=== PATIENT | female | born 1990 | race Caucasian/White ===

== ENCOUNTER → 2018-01-30 16:21 | Outpatient (CLI) | payer OTHER, SELFPAY ==
[2018-01-30 17:11] LABS: Absolute Lymphocyte Count 2.51 X10^3/ul (0.83-4.51); Absolute Neutrophil Count 4.9 X10^3/uL (2.0-7.7); Basophil# 0.05 X10^3/uL; Basophil% 0.6 % (0-1); Eosinophil# 0.15 X10^3/uL; Eosinophils% 1.9 % (0-5); Hematocrit 39.8 % (37-47); Hemoglobin 13.3 g/dl (12.0-15.0); Lymphocyte # 2.51 X10^3/ul (4.0); Lymphocyte % 31.5 % (19-41); Mean Corp Hgb Conc 33.4 g/gl (32-36); Mean Corpuscular Hgb 30.6 pg (27.0-32.0); Mean Corpuscular Volume 91.7 fL (81-99); Mean Platelet Vol. 10.4 fl (6.2-12.0); Monocyte# 0.41 X10^3/uL; Monocyte% 5.1 % (0-10); Neutrophil # 4.85 X10^3/uL (2.7-7.7); Neutrophil % 60.9 % (47-70); Platelet Count 304 K/mm3 (150-450); RBC Distribution Width SD 43.7 fl (35.1-43.9); Red Blood Count 4.34 M/mm3 (4.2-5.4)
[2018-01-30 17:12] LABS: POSITIVE COUNT NO; POSITIVE DIFFERENTIAL NO; POSITIVE MORPHOLOGY NO
[2018-01-30 18:22] LABS: HIV - WCH Non-Reactive (Nonreactive)
[2018-02-04 11:37] LABS: HEPATITIS B SURFACE AG Negative (Negative)
[2018-02-06 04:35] LABS: Rapid Plasmin Reagin (RPR) NONREACTIVE (NONREACTIVE)
== END ==
PROVIDERS: Visit Provider Obstetrics & Gynecology
DX: Z34.90 Encounter for supervision of normal pregnancy, unspecified, unspecified trimester (principal)
CPT/HCPCS: 36415; 85025; 86592; 86703; 86762; 86850; 86900; 87340

== ENCOUNTER → 2018-01-30 19:01 | Outpatient (CLI) | payer OTHER, SELFPAY ==
[2018-01-30 21:15] LABS: Chlamydia Trachomatis by PCR Negative (Negative); Neisserai gonorrhoeae by PCR Negative (Negative); Probe Check PASS; Sample Adequacy Control PASS; Specimen Processing Control PASS
[2018-02-06 13:38] LABS: HPV Reflexed? NOT INDICATED
== END ==
PROVIDERS: Visit Provider Obstetrics & Gynecology
DX: O99.511 Diseases of the respiratory system complicating pregnancy, first trimester (principal); J84.01 Alveolar proteinosis; Z3A.00 Weeks of gestation of pregnancy not specified; Z12.4 Encounter for screening for malignant neoplasm of cervix
CPT/HCPCS: 87086; 87088; 87186; 87491; 87591; 88175; G0145

== ENCOUNTER 2018-03-03 14:56 | Day surgery (SDC) | payer OTHER, SELFPAY ==
--- NOTE | 2018-03-03 06:45 | PCM.HPOB.BLA ---
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: No Is patient in pain?: No Allergies No Known Allergies Allergy (Verified 02/27/18 15:51) Medications Vits [Prenatabs FA ] 1 tab PO DAILY 11/02/16 [History Confirmed 02/27/18] Ferrous Sulfate 325 mg PO DAILY #30 tab 11/05/16 [Rx Confirmed 02/27/18] Ibuprofen [Motrin] 600 mg PO Q6H PRN #60 tab 11/05/16 [Rx Confirmed 02/27/18] Last Menstral Period: 11/30/17 Zika: Zika virus screening: Negative : No PFSH PFSH Social History current occupational status: employed current occupation: [employer] Smoking Status: Never smoker alcohol intake: never substance use type: does not use caffeine: No what type of physical activity do you participate in: none seatbelt use: always do you feel safe at home: Yes 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 Date Name GA/Weeks Outcome Route Bth Weight Infant Gen Labor Lgth Anesthesia Del [facility] Provider FOB 11/03/16 Anna 39 live - full term 8 lbs. 1 oz. Delivery Date: 11/03/16 On 01/30/18 @ 15:37 Jil Sampson chorioamnionitis HPI est ob 11 weeks: Details: SUMMER ABREU is a 27 year old who presents for routine OB visit. she denies any vaginal bleeding or abnormal discharge. she denies any signficant cramping. OB Visit YANDY Calculator Estimated Delivery Date 09/18/18 Based on Ultrasound Date 01/30/18 Current WG 11w 2d Number 1 Initial Weight: Not Recorded Date EGA Weight BP Urine Prot Glucose FHR FuHt Pres Mov CTX Dilation Effaced St Visit Note Provider Comments 01/30/18 7w 0d 116 lb 6 oz 111/66 02/27/18 11w 0d 121 lb 4 oz 129/77 Negative Negative ACOG First Trimester First Trimester: Desire for , Alcohol, Tobacco Cessation, Illicit/Recreational Drug/Substance Use, Intimate Partner Violence, Barriers to care, Unstable Housing, Communication Barriers, Environmental/Work Hazards, Anticipated Course of Care, Toxoplasmosis Precations, Use of Any medications, Sexual activity, Exercise, Dental Care, Sauna/Hot tub use, Seat Belt use, Childbirth classes/Hospital facilities, , Travel, Indications for US and Screening for Aneuploidy Diagnostics Diagnostics Labs Blood Type A POSITIVE 01/30/18 Antibody Screen NEGATIVE 01/30/18 Hct 39.8 % (37-47) 01/30/18 Hgb 13.3 g/dl (12.0-15.0) 01/30/18 Pap Smear Negative 03/25/16 Rubella IgG Antibody 98.0 IU/mL 01/30/18 RPR NONREACTIVE (NONREACTIVE) 01/30/18 Hep Bs Antigen Negative (Negative) 01/30/18 Chlam trachomat DNA PCR Negative (Negative) 01/30/18 N.gonorrhoeae DNA (PCR) Negative (Negative) 01/30/18 Rhogam given: No 11/05/16 Details: HIV: Urine Culture: Sequential Screen: NIPT Screen: ROS Const Reports system reviewed and no additional complaints, except as docu Resp Reports system reviewed and no additional complaints, except as docu Musc Reports system reviewed and no additional complaints, except as docu Exam Const General: healthy appearing, comfortable, no acute distress [facility] Head: normal to inspection, normocephalic Neck Neck: no lymphadenopathy noted Thyroid: thyroid normal Chest Chest palpation & inspection: normal inspection of the chest Resp Effort & Inspection: normal respiratory effort GI Inspection: normal to inspection Palpation: soft, nontender Skin General: no rashes or lesions noted Neuro General: no focal motor deficits Extrem General: normal to inspection, no pedal edema Results [id number] Office Urine Glucose Negative Last Edit by Malissa Becerra on 02/27/18 15:56 Office Urine Protein Negative Last Edit by Malissa Becerra on 02/27/18 15:56 Assessment & Plan Problems 1. Missed O02.1 plan d and c Plan bedside ultrasound done and pole measuring 9weeks 1 day with no heart tones seen. confirmed Missed . discussed options of cytotec vs d and c- patient desires suction d and c. proceed with surgery. Orders Orders: POC Urinalysis 2 Dip (Clinic) 02/27/18 Coding Level of Care Code Off vis,est,level 4 Diagnoses Missed O02.1 UPDATE- I have seen the patient and performed any clinically relevant updates to the history and physical exam. Jil Sampson MD
[2018-03-03 15:15] VITALS: BP 116/73; PULSE 110; RESP 18; TEMP 37.3; O2SAT 100; BMI 22.4
--- NOTE | 2018-03-03 16:30 | POC_PTH ---
PATIENT: SUMMER ABREU LOC: [facility] [place] U#:[id number] AGE/SX: 27/F ROOM: RE03/03/[address]: Dr. Jil Sampson MD : 1990 BED: DIS: 03/03/2018 SPEC #: [id number] RECD: 03/04/18 08:15 STATUS: JOJO JHON #: [id number] DANNY: 03/03/18 16:[address]: Jil Sampson DEPT: SURGICAL PATHOLOGY RECD BY: Aamir Wagner ENTERED: 03/04/18 10:53 SP TYPE: PROD CONC OTHR DR: No Primary Care Phys Tissues: Product of conception, NOS Procedures: Surgery Specimen Level IV HEADER OPERATION: Dilation and curettage, suction PRE-OP DIAGNOSIS: Missed TISSUE SUBMITTED: Products of conception MICROSCOPIC DIAGNOSIS Endometrium, curettage: Chorionic villi, decidualized stroma and trophoblastic cells consistent with products of conception. AM:sourav 03/05/18 MICROSCOPIC DESCRIPTION Slides are reviewed. GROSS DESCRIPTION Received in fixative is one container labeled with the patient's name and designated products of conception. The specimen consists of multiple irregular fragments of pink-red soft tissue that in aggregate measure 8 x 8 x 2.5 cm. tissue is not identified. Kinesiotherapist tissue is submitted in two cassettes. / SJ:sourav 03/04/18 TC:5 CPT: 27930
[2018-03-03 17:52] VITALS: BP 111/68; BP 116/73; PULSE 74; RESP 16; TEMP 36.7; O2SAT 100
[2018-03-03 17:55] VITALS: BP 112/70; BP 116/73; PULSE 82; RESP 16; O2SAT 100
--- NOTE | 2018-03-03 17:55 | PCM.OPRPT ---
Problem List (1) Missed Status: Acute Comment: plan d and c Report of Operation Date of Procedure: 03/03/18 Pre-Operative Diagnosis: missed ab Post-Operative Diagnosis: same Surgery/Procedure Performed:: suction d and c Description of Surgical Findings:: 10 week size uterus Type of Anesthesia:: Local MAC Special Medications: none Specimen's removed: poc Drains: none Estimated Blood Loss (mL): 50 Fluids Replaced: crystalloid Description of Procedure: Patient was taken to the operating room and placed under MAC local anesthesia. She was prepped and draped in the normal sterile fashion the dorsal lithotomy position. Bladder was drained of clear urine and anterior lip of the cervix was grasped and the uterus sounded to 12 cm. Cervix was progressively dilated to allow passage of a 10 mm suction curette. Progressive passes were made removing the retained products of conception without complication. Sharp curettage confirmed complete removal of the retained products. All instruments were removed from the vagina and excellent hemostasis was noted and the patient was taken to recovery in stable condition. Grafts/Implants Used: none - Complications mnone
--- NOTE | 2018-03-03 17:57 | PCM.DC.D&C ---
Discharge Diet: No Restrictions Discharge Activity: Return to Normal Activity, May Shower, May Take a Tub Bath Allergies/Adverse Reactions: Allergies No Known Allergies Allergy (Verified 03/02/18 09:58) Medications to take at Discharge NK [NK] 03/02/18 Primary Care Physician: Care Physician,No Primary [Primary Care Provider] - Test Results: Test results from this visit will be discussed in further detail at your follow-up appointment, if applicable. Please Follow Up With: Jil Sampson MD - [phone]
[2018-03-03 18:00] VITALS: BP 111/69; BP 116/73; PULSE 77; RESP 16; O2SAT 100
[2018-03-03 18:07] VITALS: BP 113/68; BP 116/73; PULSE 77; RESP 16; TEMP 36.9; O2SAT 100
[2018-03-03 18:53] VITALS: BP 116/73
== END 2018-03-03 18:54 | disposition home or self-care (01) ==
LOC: SDC 14:57 → AC 14:58
PROVIDERS: Visit Provider Obstetrics & Gynecology
PROC: (CPT 59812; principal; 2018-03-03 16:15)
DX: O03.4 Incomplete spontaneous abortion without complication (principal); Z87.891 Personal history of nicotine dependence
CPT/HCPCS: 01965; 59812; 86850; 86900; 88305; J7120

== ENCOUNTER 2018-10-15 09:32 | Emergency (ER) | payer OTHER, SELFPAY ==
[2018-10-15 09:33] VITALS: BP 123/79; PULSE 80; RESP 18; TEMP 37; O2SAT 99; BMI 20.7
--- NOTE | 2018-10-15 09:48 | ED.DCSUM_ITS ---
History of Present Illness Chief Complaint: Chest Other Informant: Patient Onset: Yesterday Context: Sudden Onset Timing: Continuous Location: Pain left upper quadrant Current Severity: Mild Maximum Severity: Moderate Worsened by: Movement and deep palpation Relieved by: Deep palpation and better with ibuprofen Associated Symptoms: Intermittent soft stool times 2 weeks Narrative: Patient is a 27-year-old AB 1 (spontaneous) female who is presently on her menstrual cycle and presents with pain left side predominant left upper quadrant. There is associated occasional nausea without vomiting. She denies dysuria, frequency, urgency or hematuria. There is no history of renal ureterolithiasis. She denies shortness of breath, cough, difficulty breathing, dyspnea on exertion. She has no history of PE or DVT and has no risk factors. She is on no hormonal therapy. There is no history of trauma. She has not noted rash or skin lesions. She denies prior symptoms. She denies fever, chills or night sweats. Denies weight gain or weight loss. - Past Medical History (1) No significant past medical history Status: Acute Past Medical History - Allergies and Home Meds Allergies/Adverse Reactions: Allergies No Known Allergies Allergy (Verified 10/15/18 09:35) Primary Care Physician: Care Physician,No Primary [Primary Care Provider] - Prior records reviewed: Yes Past Medical History: None Surgical History: noncontributory Lives: With Family Smoking Status: Former smoker Alcohol: None Drugs: None Review of Systems General: Denies: Chills, Fever, Sweats Eyes: Denies: Visual changes - bilaterally, Blurred Vision - bilaterally, Diplopia ENT: Denies: Rhinorrhea, Sore throat Cardiovascular: Denies: Chest pain, Palpitations Respiratory: Denies: Dyspnea, Cough, Dyspnea on exertion Gastrointestinal: Reports: Abdominal pain, Nausea, Diarrhea - Mushy stools intermittently for 2 weeks. Denies: Vomiting, Melena, Hematochezia Genitourinary: Denies: Dysuria, Hematuria, Frequency Musculoskeletal: Denies: Myalgias, Arthralgias, Back pain, Extremity Pain Skin: Denies: Rash, Abscess, Abrasions, Wounds Neurological: Denies: Headache, Weakness, Numbness Hematologic: Denies: Easy bruising, Easy bleeding Allergy: Denies: Uticaria Physical Exam Vital Signs/Narrative: Vital Signs Temp Pulse Resp BP Pulse Ox 10/15/18 09:33 98.6 F 80 18 123/79 H 99 Inital Vital Signs reviewed: Yes General: Well nourished, Well developed, No Acute Distress Head: Normocephalic, Atraumatic Eyes: Perrl, EOMI. Negative for: Pale conjunctiva, Scleral icterus, - ENT: Negative for: Moist mucous membranes, No rhinorrhea, TM's clear, Dry mucous membranes, Nasal congestion, Sinus tenderness, - Neck: Supple, Nontender, No lymphadenopathy, No JVD Cardiovascular: Regular rate, Regular rhythm, No murmurs, Normal S1, Normal S2 Respiratory: No distress, CTA bilaterally, Chest nontender Abdomen: Soft, No masses, Tender - Tenderness left upper quadrant., Hyperactive bowel sounds - [place] to percussion.. Negative for: Guarding, Rebound tenderness, Hepatomegaly, Splenomegaly, Mass, Pulsatile mass Rectal: Deferred Back: Nontender, Normal Inspection. Negative for: CVA tenderness Extremities: Nontender, No edema Skin: Normal color, No rash, No Trauma. Negative for: Cyanosis, Jaundice, Rash Neurological: Alert, Oriented x3, Cranial nerves II-XII grossly intact, Normal Strength, Normal Sensation, Normal Gait Psychological: Normal affect, Normal Mood Diagnostic/Tx/Re-eval Laboratory Results 10/15/18 10/15/18 09:55 09:55 WBC 8.4 RBC 4.53 Hgb 14.2 Hct 43.5 MCV 96.0 MCH 31.3 MCHC 32.6 RDW 13.9 RDW Differential 48.9 H Plt Count 290 MPV 11.3 Immature Gran % (Auto) 0.000 Neut % (Auto) 68.4 Lymph % (Auto) 24.3 [place] % (Auto) 5.8 Eos % (Auto) 1.3 Baso % (Auto) 0.2 Absolute Neuts (auto) 5.8 Absolute Lymphs (auto) 2.05 Total Counted Not Reportable Sodium 139 Potassium 3.8 Chloride 107 Carbon Dioxide 24.0 Anion Gap 8 BUN 11 Creatinine 0.72 Estim Creat Clear Calc 90.13 Est GFR (MDRD) Af Amer 126 Est GFR (MDRD) Non-Af 104 BUN/Creatinine Ratio 15.3 Glucose 83 Calcium 8.6 - Medical Decision Making Patient with abdominal pain of uncertain etiology. This may represent increased gas. There is no evidence of splenomegaly on examination. Negative Wright sign. Doubt pancreatitis since there is no history of drinking. Will obtain CBC to assess white count and H&H. Because she reports diarrhea for 2 weeks electrode panel was obtained to assess renal function and specifically potassium. She was treated with 20 of Bentyl since she is tympanitic with increased bowel sounds and mild distention. Patient was informed at 1115 that her test were negative. She was lying without any discomfort. She is now smiling. Will discharge to home. She was informed of the cause of her pain is unknown. ED Disposition - Plan for ED Patient: Disposition: Home or Assisted Living Diagnosis: Left sided abdominal pain of unknown cause Instructions: ED Abdominal Pain Unkn Cause Referrals: Care Physician,No Primary [Primary Care Provider] - Cortney Novoa MD [STAFF PHYSICIAN] - 3-5 Days if not improving Additional Instructions: Since you do not have a primary care physician you were referred to Dr. Novoa.
[2018-10-15 10:17] LABS: Absolute Lymphocyte Count 2.05 X10^3/ul (0.83-4.51); Absolute Neutrophil Count 5.8 X10^3/uL (2.0-7.7); Basophil# 0.02 X10^3/uL; Basophil% 0.2 % (0-1); Eosinophil# 0.11 X10^3/uL; Eosinophils% 1.3 % (0-5); Hematocrit 43.5 % (37-47); Hemoglobin 14.2 g/dl (12.0-15.0); Lymphocyte # 2.05 X10^3/ul (4.0); Lymphocyte % 24.3 % (19-41); Mean Corp Hgb Conc 32.6 g/gl (32-36); Mean Corpuscular Hgb 31.3 pg (27.0-32.0); Mean Platelet Vol. 11.3 fl (6.2-12.0); Monocyte# 0.49 X10^3/uL; Monocyte% 5.8 % (0-10); Neutrophil # 5.76 X10^3/uL (2.7-7.7); Neutrophil % 68.4 % (47-70); Platelet Count 290 K/mm3 (150-450); RBC Distribution Width CV 13.9 % (11.6-14.6); RBC Distribution Width SD 48.9 fl (35.1-43.9); Red Blood Count 4.53 M/mm3 (4.2-5.4); White Blood Count 8.4 K/mm3 (4.4-11.0)
[2018-10-15 10:19] LABS: POSITIVE COUNT NO; POSITIVE DIFFERENTIAL NO; POSITIVE MORPHOLOGY NO
[2018-10-15 10:22] LABS: Anion Gap 8 (5-15); BUN 11 mg/dL (7-18); BUN/Creat Ratio 15.3 RATIO (10-20); Calcium,Total 8.6 mg/dL (8.5-10.1); Chloride 107 mmol/L (98-107); Creatinine, Serum 0.72 mg/dL (0.55-1.02); EST Glomerular Filtration Rate 104 mL/min (>60); Est Glom Filt Rate - Afr Amer 126 mL/min (>60); Estimated Creatinine Clearance 90.13 ml/min; Glucose 83 mg/dL (74-106); Potassium 3.8 mmol/L (3.5-5.1); Sodium Level 139 mmol/L (136-145)
[2018-10-15] MEDS: Dicyclomine 10 MG Capsule 20 MG PO (10:47)
[2018-10-15 12:00] VITALS: RESP 14
== END 2018-10-15 12:01 | disposition home or self-care (01) ==
LOC: ED 11:30
PROVIDERS: Emergency Provider Emergency Medicine
DX: R10.12 Left upper quadrant pain (principal); Z87.891 Personal history of nicotine dependence
CPT/HCPCS: 80048; 85025; 99284; A4216

== ENCOUNTER → 2019-07-27 13:54 | Outpatient (CLI) | payer OTHER, SELFPAY ==
--- NOTE | 2019-07-27 13:54 | US_ITS ---
STUDY: FIRST TRIMESTER OBSTETRICAL ULTRASOUND REASON FOR EXAM: Female, 28 years old DATING ULTRASOUND -- HX OF SAB LMP: July 02, 2019. TECHNIQUE: Transvaginal TECHNICAL QUALITY: Adequate. PRIOR ULTRASOUND: None. FINDINGS: There is visualization of a single gestational sac in a normal intrauterine position. The mean sac diameter (MSD) measures 7.4 mm, indicating an estimated gestational age (EGA) of 5 weeks, 1 days. The gestational sac shape is within normal limits. There is a visualized yolk sac. The yolk sac measures 2 mm.. The placenta is non-visualized. There is no demonstrated embryo ( pole). The estimated gestation age (EGA) by LMP is 5 weeks, 4 days. The estimated date of delivery (YANDY) by LMP is March 24, 2020. The estimated gestation age (EGA) by US is 5 weeks, 1 days. The estimated date of delivery (YANDY) by US is March 27, 2020. The uterus measures 8.1 cm x 5.7 cm x 4.8 cm.. There is no demonstrated uterine fibroid. The cervix is closed. The right ovary measures 3.4 cm x 3.27 x 2.1 cm.. There is a 2.1 cm x 2.1 cm x 1.8 cm hypoechoic nodule in the right ovary most likely representing a regressing cyst. There is no visualized right adnexal mass or complex lesion. The left ovary measures 4.6 cm x 4.6 x 3.8 cm. There is a 4 cm x 4 cm x 3.3 cm left ovarian cyst. There is no visualized left adnexal mass or complex lesion. There is minimal fluid in the cul de sac. US/Init OB < 14Wks US IMPRESSION: Intrauterine gestational sac with a mean gestational age of 5 weeks and 1 day. No embryonic pole is seen at this time. Sonographic follow-up is recommended. Dominant left ovarian cyst. Electronically Signed: Mando Spencer, at 14:23 EST , Service support ,
== END ==
PROVIDERS: Referring Provider Obstetrics & Gynecology; Visit Provider Obstetrics & Gynecology
DX: Z87.59 Personal history of other complications of pregnancy, childbirth and the puerperium (principal)
CPT/HCPCS: 76801

== ENCOUNTER → 2019-07-29 11:33 | Outpatient (CLI) | payer OTHER, SELFPAY ==
[2019-07-29 13:12] LABS: hCG Titer Quant., Serum 8485 mIU/mL (1-3)
== END ==
PROVIDERS: Referring Provider Nurse Practitioner Women's Health; Visit Provider Nurse Practitioner Women's Health
DX: O20.0 Threatened abortion (principal); Z3A.00 Weeks of gestation of pregnancy not specified
CPT/HCPCS: 36415; 84702

== ENCOUNTER → 2019-08-06 12:32 | Outpatient (CLI) | payer OTHER, SELFPAY ==
--- NOTE | 2019-08-06 12:33 | US_ITS ---
STUDY: FIRST TRIMESTER OBSTETRICAL ULTRASOUND REASON FOR EXAM: Female, 28 years old. Viability. Dates. LMP: June 24, 2019. TECHNIQUE: Transvaginal TECHNICAL QUALITY: Adequate. PRIOR ULTRASOUND: July 27, 2019. FINDINGS: There is visualization of a single gestational sac in a normal intrauterine position. The mean sac diameter (MSD) measures 1.77 cm, indicating an estimated gestational age (EGA) of 6 weeks, 5 days. The gestational sac shape is within normal limits. There is a visualized yolk sac. The yolk sac measures 0.33 cm. The placenta is non-visualized. There is visualization of a live embryo. The crown-rump length (CRL) measures 0.67 cm, indicating an estimated gestational age (EGA) of 6 weeks, 4 days. There is demonstrated cardiac activity with a heart rate of 114 bpm. The estimated gestation age (EGA) by LMP is 6 weeks, 1 days. The estimated date of delivery (YANDY) by LMP is March 30, 2020. The estimated gestation age (EGA) by prior US is 6 weeks, 4 days. The estimated date of delivery (YANDY) by prior US is March 27, 2020. The estimated gestation age (EGA) by US is 6 weeks, 5 days. The estimated date of delivery (YANDY) by US is March 26, 2020. The uterus measures 7.9 x 4.6 x 4.5 cm. There is no demonstrated uterine fibroid. The cervix is closed. The right ovary measures 4.3 x 2.3 x 1.8 cm. There is a 2.0 x 2.2 x 1.8 cm corpus luteum cyst. There is no visualized right adnexal mass or complex lesion. Normal vascularity on Doppler imaging. The left ovary measures 5.7 x 5.3 x 3.5. There is a large cyst measuring 4.3 x 4.3 x 2.5 cm. This contains internal debris. There is no visualized left adnexal mass or complex lesion. Normal vascularity on Doppler imaging. There is minimal free fluid adjacent to the right ovary. US/Init OB < 14Wks US IMPRESSION: 1. Live single intrauterine at 6 weeks, 5 days. YANDY is March 26, 2020. There is adequate interval growth since prior study. 2. heart rate of 114 bpm. 3. Right ovarian corpus luteum cyst. There is minimal free fluid adjacent to the right ovary. 4. Complicated left ovarian cyst this appears unchanged from the prior exam. Electronically Signed: Shahzad Wilcox DO at 19:10 EST Tel [phone], Service support ,
== END ==
PROVIDERS: Referring Provider Obstetrics & Gynecology; Visit Provider Obstetrics & Gynecology
DX: O20.0 Threatened abortion (principal); O34.81 Maternal care for other abnormalities of pelvic organs, first trimester; N83.11 Corpus luteum cyst of right ovary; N83.202 Unspecified ovarian cyst, left side; Z3A.01 Less than 8 weeks gestation of pregnancy
CPT/HCPCS: 76801; 76816

== ENCOUNTER → 2019-09-01 | Outpatient (CLI) | payer OTHER, SELFPAY ==
[2019-09-01 11:29] VITALS: BMI 20.7
[2019-09-01 18:28] LABS: Amphetamine Urine VISTA NEGATIVE (<1000 ng/mL); Barbiturate Urine VISTA NEGATIVE (< 200 ng/mL); Benzodiazepine Urine VISTA NEGATIVE (< 200 ng/mL); Cocaine Urine VISTA NEGATIVE (< 300 ng/mL); Ecstacy Urine VISTA NEGATIVE (< 500 ng/mL); Methadone Urine VISTA NEGATIVE (< 300 ng/mL); PCP Urine VISTA NEGATIVE (< 25 ng/mL); THC Urine VISTA NEGATIVE (< 50 ng/mL); Vista UDS pH Range 5
[2019-09-01 18:43] LABS: Chlamydia Trachomatis by PCR Negative (Negative); Neisserai gonorrhoeae by PCR Negative (Negative); Probe Check PASS; Sample Adequacy Control PASS; Specimen Processing Control PASS
== END | disposition home or self-care (01) ==
LOC: LABSPEC 16:32
PROVIDERS: Referring Provider Obstetrics & Gynecology; Visit Provider Obstetrics & Gynecology
DX: Z34.90 Encounter for supervision of normal pregnancy, unspecified, unspecified trimester (principal)
CPT/HCPCS: 80307; 87086; 87088; 87491; 87591

== ENCOUNTER → 2019-09-24 11:42 | Outpatient (CLI) | payer OTHER, SELFPAY ==
[2019-09-24 11:10] VITALS: BMI 20.7
[2019-09-24 12:45] LABS: Absolute Lymphocyte Count 1.71 X10^3/uL (0.83-4.51); Absolute Neutrophil Count 4.3 X10^3/uL (2.0-7.7); Basophil# 0.02 X10^3/uL; Basophil% 0.3 % (0-1); Eosinophil# 0.09 X10^3/uL; Eosinophils% 1.4 % (0-5); Hematocrit 39.2 % (37-47); Hemoglobin 12.9 g/dL (12.0-15.0); Lymphocyte # 1.71 X10^3/ul (4.0); Lymphocyte % 26.9 % (19-41); Mean Corp Hgb Conc 32.9 g/dL (32-36); Mean Corpuscular Hgb 31.1 pg (27.0-32.0); Mean Corpuscular Volume 94.5 fL (81-99); Mean Platelet Vol. 10.8 fl (6.2-12.0); Monocyte# 0.25 X10^3/uL; Monocyte% 3.9 % (0-10); NRBC Flagged by Analyzer 0 % (0-5); Neutrophil # 4.27 X10^3/uL (2.7-7.7); Neutrophil % 67.2 % (47-70); Platelet Count 227 K/mm3 (150-450); RBC Distribution Width CV 13.2 % (11.6-14.6); RBC Distribution Width SD 46.1 fl (35.1-43.9); Red Blood Count 4.15 M/mm3 (4.2-5.4); White Blood Count 6.4 K/mm3 (4.4-11.0)
[2019-09-24 14:00] LABS: HIV - WCH Non-Reactive (Nonreactive); Hepatitis B Surface Antigen Non-Reactive (Nonreactive); Hepatitis C Antibody Non-Reactive (Nonreactive); Rubella IgG 93.3 IU/mL
[2019-09-30 02:24] LABS: Rapid Plasmin Reagin (RPR) NONREACTIVE (NONREACTIVE)
== END ==
PROVIDERS: Referring Provider Obstetrics & Gynecology; Visit Provider Obstetrics & Gynecology
DX: Z34.90 Encounter for supervision of normal pregnancy, unspecified, unspecified trimester (principal)
CPT/HCPCS: 36415; 85025; 86592; 86703; 86762; 86803; 86850; 86900; 86901; 87340

== ENCOUNTER → 2019-12-24 09:51 | Outpatient (CLI) | payer OTHER, SELFPAY ==
[2019-11-25 09:17] VITALS: BMI 20.7
[2019-12-24 10:44] LABS: Absolute Lymphocyte Count 1.72 X10^3/uL (0.83-4.51); Absolute Neutrophil Count 5.6 X10^3/uL (2.0-7.7); Basophil# 0.02 X10^3/uL; Basophil% 0.3 % (0-1); Eosinophil# 0.09 X10^3/uL; Eosinophils% 1.1 % (0-5); Hemoglobin 11.3 g/dL (12.0-15.0); Lymphocyte # 1.72 X10^3/ul (4.0); Lymphocyte % 21.9 % (19-41); Mean Corp Hgb Conc 32.3 g/dL (32-36); Mean Corpuscular Volume 99.2 fL (81-99); Mean Platelet Vol. 10.6 fl (6.2-12.0); Monocyte# 0.41 X10^3/uL; Monocyte% 5.2 % (0-10); NRBC Flagged by Analyzer 0 % (0-5); Neutrophil # 5.56 X10^3/uL (2.7-7.7); Neutrophil % 70.9 % (47-70); Platelet Count 240 K/mm3 (150-450); RBC Distribution Width CV 12.7 % (11.6-14.6); RBC Distribution Width SD 45.8 fl (35.1-43.9); Red Blood Count 3.53 M/mm3 (4.2-5.4); White Blood Count 7.9 K/mm3 (4.4-11.0)
[2019-12-24 11:03] LABS: Glucose Challenge Gest 1H 50g 110 mg/dL (70-140)
== END ==
PROVIDERS: Referring Provider Nurse Practitioner Women's Health; Visit Provider Nurse Practitioner Women's Health
DX: Z34.90 Encounter for supervision of normal pregnancy, unspecified, unspecified trimester (principal)
CPT/HCPCS: 36415; 82950; 85025

== ENCOUNTER → 2020-03-06 | Outpatient (CLI) | payer OTHER, SELFPAY ==
[2020-03-06 10:46] VITALS: BMI 20.7
== END | disposition home or self-care (01) ==
LOC: LABSPEC 16:40
PROVIDERS: Referring Provider Obstetrics & Gynecology; Visit Provider Obstetrics & Gynecology
DX: Z34.90 Encounter for supervision of normal pregnancy, unspecified, unspecified trimester (principal)
CPT/HCPCS: 87081

== ENCOUNTER 2020-03-14 04:00 | Inpatient (IN) | payer OTHER, SELFPAY ==
[2020-03-13 10:47] VITALS: BMI 28.7
[2020-03-14] VITALS (79 sets, daily range): BP systolic 70–148; BP diastolic 34–75; PULSE 60–139; RESP 18; TEMP 36.6–39.3; O2SAT 89–100; BMI 29.6
--- NOTE | 2020-03-14 | PLAC_PTH ---
PATIENT: SUMMER ABREU LOC: [facility] U#:[id number] AGE/SX: 29/F ROOM: WP005 RE03/14/[address]: Dr. Lisa Odell MD : 1990 BED: 1 DIS: 03/16/2020 SPEC #: [id number] RECD: 03/14/20 23:30 STATUS: JOJO JHON #: [id number] DANNY: 03/14/20 00:[address]: Lisa Odell DEPT: SURGICAL PATHOLOGY RECD BY: Jose G Qureshi ENTERED: 03/15/20 10:31 SP TYPE: PLACENTA OTHR DR: No Primary Care Phys Tissues: Placenta, NOS Procedures: Surgery Specimen Level V HEADER OPERATION: Vaginal delivery PRE-OP DIAGNOSIS: Intrapartum intraamniotic infection TISSUE SUBMITTED: Placenta MICROSCOPIC DIAGNOSIS Nix placenta (616 gm): Umbilical cord - trivascular with acute funisitis. Placental membranes - acute chorioamnionitis and acute deciduitis. Placental disc - increased intraparenchymal microcalcifications. AM:sourav 03/17/20 MICROSCOPIC DESCRIPTION Slides are reviewed. GROSS DESCRIPTION SPECIMEN: PLACENTA / CLINICAL INFORMATION: A. Weight: 3.905 kg B. Gestational Age: 37 weeks C. Sex: Male PLACENTAL WEIGHT (POST FIXATION): 616 gm PLACENTAL DIMENSIONS: 19 x 18 x 3.5 cm PLACENTAL SHAPE: Usual ovoid PLACENTAL WEIGHT FOR GESTATIONAL AGE: Over 99th percentile MEMBRANES - Present A. Insertion: Marginal B. Site of rupture from edge: 6 cm from edge of placental disc C. Color of membrane: Mendez-chery D. Abnormalities: None UMBILICAL CORD - Present A. Color: Mendez-chery B. Insertion: Marginal C. Length: 29 cm D. Diameter: 1.2 cm E. Number of vessels: Three F. Abnormalities: None PLACENTAL DISC - Present A. Color of surface: Mendez-chery B. surface abnormalities: None C. Maternal cotyledons: Intact with minimal tears D. Attached retro placental clot: No clot E. Cut surface: Dark red and spongy F. Lesions: None G. Separate clot: Absent SECTIONS SUBMITTED: 1. Membrane roll 2. Cord, maternal end 3. Cord, end 4. Placental disc, and maternal surfaces 5. Placental disc, and maternal surfaces 6. Placental disc, and maternal surfaces SJ:sourav 03/16/20 TC:2 CPT: 96817
[2020-03-14] MEDS: Lactated Ringers 500 ML 999 ML IV ×2 (04:10→06:04)
[2020-03-14] MEDS: Lactated Ringers 1,000 ML 200 ML IV ×3 (04:10→13:57)
[2020-03-14 04:23] LABS: Absolute Lymphocyte Count 1.92 X10^3/uL (0.83-4.51); Absolute Neutrophil Count 9.6 X10^3/uL (2.0-7.7); Basophil# 0.02 X10^3/uL; Basophil% 0.2 % (0-1); Eosinophil# 0.03 X10^3/uL; Eosinophils% 0.2 % (0-5); Hematocrit 31.5 % (37-47); Hemoglobin 10.2 g/dL (12.0-15.0); Lymphocyte # 1.92 X10^3/ul (4.0); Lymphocyte % 15.5 % (19-41); Mean Corp Hgb Conc 32.4 g/dL (32-36); Mean Corpuscular Hgb 28.2 pg (27.0-32.0); Mean Platelet Vol. 11.2 fl (6.2-12.0); Monocyte# 0.68 X10^3/uL; Monocyte% 5.5 % (0-10); NRBC Flagged by Analyzer 0 % (0-5); Neutrophil # 9.63 X10^3/uL (2.7-7.7); Platelet Count 248 K/mm3 (150-450); RBC Distribution Width CV 12.6 % (11.6-14.6); Red Blood Count 3.62 M/mm3 (4.2-5.4); White Blood Count 12.4 K/mm3 (4.4-11.0)
[2020-03-14] MEDS: fentaNYL-bupivacaine (epidural) 100 ML BAG EPIDURAL ×2 (05:16→12:03)
--- NOTE | 2020-03-14 06:26 | HP.PCM_ITS ---
- Problem List (1) Active labor at term Status: Acute (2) Status: Acute Qualifiers: Comment: declined NIPT, ntd, and carrier screening. Anatomy US normal. (3) Supervision of normal Status: Acute Qualifiers: Comment: PRR YANDY 03/30/20 boy Deonte Castillo Conrad History and Physical Date of Admission: 03/14/20 Intake Vital Signs 03/13/20 Height 5 ft 1 in 03/13/20 Weight: 152 lb 03/13/20 BMI 28.7 03/13/20 BP 118/66 03/13/20 BMI 20.7 Intake Visit Reasons: 37WK OB Chief Complaint: est ob It Service Continuity Supervisor Required: No Is patient in pain?: No Allergies No Known Allergies Allergy (Verified 03/13/20 10:47) Medications vitamin#30 30 mg iron-10 mg iron-folic acid 1 mg-omg3 capsule cap PO 11/25/19 [History Confirmed 03/13/20] Last Menstral Period: 06/24/19 Zika: Zika virus screening: Negative : No PFSH PFSH Medical History Missed (Resolved) Surgical History History of hysteroscopy (Acute) Social History (Updated 03/13/20 @ 11:[address] 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 Date Name GA/Weeks Outcome Route Bth Weight Infant Gen Labor Lgth Anesthesia Del Locatn Provider FOB 11/03/16 Anna 39 live - full term 8 lbs. 1 oz. F emale 32hours epidural [facility] Dr. Damon Delivery Date: 11/03/16 On 01/30/18 @ 15:37 Jil Sampson chorioamnionitis HPI 37WK OB : Details: SUMMER ABREU is a 29 year old who presents for routine OB visit. OB Visit YANDY Calculator Estimated Delivery Date Method Current WG Current Estimate 03/30/20 LMP (Certain) 37w 4d Expected Delivery Route/Plan Labor Preferences- CB/BF classes: na labor support person: Conrad labor intervention preferences: prefers not to have AROM, but open if needed. had chorio last delivery pain management options preferred: epidural cut cord/dad catch: cut : yes PP control planned: NFP condoms discussed possible routes of delivery and associated risks: discussed possible delivery modalities and possible indications for each including R/B/A of , VAVD, and CS. questions answered. special requests: none Specific Issue/Plans flu vaccine: declines tdap vaccine: given rhogam: NA LARC form signed: declined movement and labor precautions reviewed. Problem list reviewed and updated with the most current plan of care details and appropriate orders placed. Relevant counseling for the gestational age provided. Continue routine care and follow up unless otherwise noted in visit notes/problem list details Initial Weight: 126 lb Date EGA Weight BP Urine Prot Glucose FHR FuHt Pres Dilation Effaced St Visit Note 09/24/19 13w 1d 127 lb 2 oz (+1 lb 2 oz) 110/64 Negative Negative 150 SM- no vb cramping 11/25/19 22w 0d 134 lb (+8 lb) 118/60 Negative Negative 139 MH-NO VB, LOF. Good FM. Nl US. 28 wk labs next visit 12/24/19 26w 1d 138 lb (+12 lb) 96/60 Negative Negative 160 26 SM- no vb lof good fm no regular ctx cbc gct tdap 01/21/20 30w 1d 141 lb 2 oz (+15 lb 2 oz) 110/64 Negative Negative 155 30 Sm- no vb lof good fm no regular ctx larc signed 02/04/20 32w 1d 145 lb (+19 lb) 110/60 Negative Negative 145 32 SM- no vb lof good fm no regular ctx discussed delivery preferences 02/18/20 34w 1d 146 lb 8 oz (+20 lb 8 oz) 100/60 Negative Negative 150 34 SM- no vb lof good fm no regular ctx 02/28/20 35w 4d 150 lb 6 oz (+24 lb 6 oz) 100/64 150 36 Sm- no vb lof good fm no regular ctx 03/06/20 36w 4d 152 lb 6 oz (+26 lb 6 oz) 122/70 Negative Negative 140 37 SM- no vb lof good f mn oregular ctx gbs collected 03/13/20 37w 4d 152 lb (+26 lb) 118/66 Negative Negative 150 38 SM no vb lof good fm no regular ctx, membranes swept. plan covid testing end of week if no labor prior. ACOG First Trimester First Trimester: Desire for , Alcohol, Tobacco Cessation, Illicit/Recreational Drug/Substance Use, Intimate Partner Violence, Barriers to care, Unstable Housing, Communication Barriers, Environmental/Work Hazards, Anticipated Course of Care, Toxoplasmosis Precations, Use of Any medications, Sexual activity, Exercise, Dental Care, Sauna/Hot tub use, Seat Belt use, Childbirth classes/Hospital facilities, , Travel, Indications for US and Screening for Aneuploidy Second Trimester Second Trimester: Signs and Symptoms of Labor, Selecting a care provider, Reproductive Life Planning, Care Planning, Tobacco Cessation, Depression/Anxiety and Intimate Partner Violence Third Trimester Third Trimester: Pain Management Plans, Labor support person(s), Immediate Larc, Movement Monitoring and Feeding Yes ; discussed Trial of Labor after Counseling or discussed Circumcision preference Diagnostics Diagnostics Diagnostics Blood Type A POSITIVE 09/24/19 Antibody Screen NEGATIVE 09/24/19 Glucose 1 Hr 50 gm 110 mg/dL (70-140) 12/24/19 HIV 1&2 Antibody Non-Reactive (Nonreactive) 09/24/19 Rubella IgG Antibody 93.3 IU/mL 09/24/19 Hgb 11.3 g/dL (12.0-15.0) L 12/24/19 Hct 35.0 % (37-47) L 12/24/19 RPR NONREACTIVE (NONREACTIVE) 09/24/19 Details: HIV: Urine Culture: Sequential Screen: NIPT Screen: ROS Const Reports system reviewed and no additional complaints, except as docu Card Reports system reviewed and no additional complaints, except as docu Resp Reports system reviewed and no additional complaints, except as docu GI Reports system reviewed and no additional complaints, except as docu, Reports nausea Reports system reviewed and no additional complaints, except as docu Musc Reports system reviewed and no additional complaints, except as docu Exam Const General: cooperative, healthy appearing, comfortable, anxious HENWI Head: normal to inspection Nose: external nose normal Face and sinus: normal facial exam Neck Neck: normal visual inspection, full ROM, no lymphadenopathy Thyroid: thyroid normal Chest Chest palpation & inspection: normal inspection of the chest Resp Effort & Inspection: normal respiratory effort GI Inspection: normal to inspection Palpation: soft, other (gravid uterus) Other: vertex and appropriate size for gestational age Other: Cervical Exam: Extrem General: pedal edema Results POC Urinalysis 2 Dip (Clinic) Office Urine Glucose Negative Last Edit by Angelica Galvin on 03/13/20 10:5 1 Office Urine Protein Negative Last Edit by Angelica Galvin on 03/13/20 10:5 1 Assessment & Plan Problems 1. Supervision of normal Z34.90 PRR YANDY 03/30/20 boy Deonte Castillo Conrad 2. Z34.90 declined NIPT, ntd, and carrier screening. Anatomy US normal. Orders Orders: POC Urinalysis 2 Dip (Clinic) Today Coding Level of Care Code OB Routine Diagnoses Supervision of normal Z34.90 Z34.90 Patient presents IAL, plan expectant management for , pitocin/AROM PRN if needed. Pain management: plans epidural. GBS negative. Management of any complications: none I have reviewed the [facility] and made any clinically relevant updates. UPDATE- I have seen the patient and performed any clinically relevant updates to the history and physical exam. Lisa Odell M.D.
[2020-03-14] MEDS: Oxytocin 30 units/NS 500 ml 30 UNITS/500 ML IV.SOLN IV (08:28)
[2020-03-14] MEDS: Acetaminophen 500 MG Tablet 1000 MG PO (14:21)
--- NOTE | 2020-03-14 16:52 | DCINST_ITS ---
Discharge Diet: No Restrictions Discharge Activity: Return to Normal Activity, May not drive while taking narcotic pain medications., May Shower May resume sexual activity in: 4-6 weeks Call your doctor if your incision/area has: Continuous Slow Oozing, Sudden Increased Bleeding, Increased Pain/ Swelling, Increased Redness, Foul Smelling Discharge Additional Instructions: If you experience any of the following, contact your healthcare provider. * Bleeding that soaks a pad every hour for 2 hours * Fever 100.4 or higher * Unrelieved incision or abdominal pain * Swelling, redness, discharge or bleeding from your incision or episiotomy site * Your incision begins to separate * Problems urinating (including inability to urinate or burning while urinating). * Visual changes * Severe headache * Flu-like symptoms * Pain or redness in one of both of your breasts * Pain, warmth, tenderness or swelling in your legs, especially the calf area * Frequent nausea and vomiting * Symptoms of depression or anxiety If you experience any of the following, call 911 or go to the nearest Emergency Room. * Chest pain * Problems breathing * Seizure activity * Partial or complete paralysis of a body part, slurred speech, weakness or drooping of the face, or a sudden inability to walk or hold your balance Allergies/Adverse Reactions: Allergies No Known Allergies Allergy (Verified 03/14/20 04:11) Medications to take at Discharge vitamin#30 30 mg iron-10 mg iron-folic acid 1 mg-omg3 capsule cap PO 11/25/19 Please Follow Up With: Jil Sampson MD - [phone] When: Call to make an appointment with your doctor in 6 weeks. If you had elevated Blood pressure or 4th degree laceration you will need to be seen in 2 weeks. Primary Care Physician: Care Physician,No Primary [Primary Care Provider] - Test Results: Test results from this visit will be discussed in further detail at your follow- up appointment, if applicable.
--- NOTE | 2020-03-14 16:52 | PCM.DCVAG ---
Discharge Diet: No Restrictions Discharge Activity: Return to Normal Activity, May not drive while taking narcotic pain medications., May Shower May resume sexual activity in: 4-6 weeks Call your doctor if your incision/area has: Continuous Slow Oozing, Sudden Increased Bleeding, Increased Pain/ Swelling, Increased Redness, Foul Smelling Discharge Additional Instructions: If you experience any of the following, contact your healthcare provider. Bleeding that soaks a pad every hour for 2 hours Fever 100.4 or higher Unrelieved incision or abdominal pain Swelling, redness, discharge or bleeding from your incision or episiotomy site Your incision begins to separate Problems urinating (including inability to urinate or burning while urinating). Visual changes Severe headache Flu-like symptoms Pain or redness in one of both of your breasts Pain, warmth, tenderness or swelling in your legs, especially the calf area Frequent nausea and vomiting Symptoms of depression or anxiety If you experience any of the following, call 911 or go to the nearest Emergency Room. Chest pain Problems breathing Seizure activity Partial or complete paralysis of a body part, slurred speech, weakness or drooping of the face, or a sudden inability to walk or hold your balance Allergies/Adverse Reactions: Allergies No Known Allergies Allergy (Verified 03/14/20 04:11) Medications to take at Discharge vitamin#30 30 mg iron-10 mg iron-folic acid 1 mg-omg3 capsule cap PO 11/25/19 Please Follow Up With: Jil Sampson MD - [phone] When: Call to make an appointment with your doctor in 6 weeks. If you had elevated Blood pressure or 4th degree laceration you will need to be seen in 2 weeks. Primary Care Physician: Care Physician,No Primary [Primary Care Provider] - Test Results: Test results from this visit will be discussed in further detail at your follow-up appointment, if applicable.
[2020-03-14] MEDS: Oxytocin 30 units/NS 500 ml 30 UNITS/500 ML IV.SOLN 334 UNITS IV (17:30)
--- NOTE | 2020-03-14 17:36 | PCM.OPRPT ---
Problem List (1) Active labor at term Status: Acute (2) Status: Acute Qualifiers: Comment: declined NIPT, ntd, and carrier screening. Anatomy US normal. (3) Supervision of normal Status: Acute Qualifiers: Comment: PRR YANDY 03/30/20 boy Deonte Castillo Conrad
--- NOTE | 2020-03-14 17:39 | PCM.OPRPT ---
Problem List (1) Active labor at term Status: Acute (2) Status: Acute Qualifiers: Comment: declined NIPT, ntd, and carrier screening. Anatomy US normal. (3) Supervision of normal Status: Acute Qualifiers: Comment: PRR YANDY 03/30/20 boy Deonte Castillo Conrad Vaginal Delivery 29-year-old G2, P1 at 37 weeks gestation who presented to triage in active labor. He was augmented with artificial rupture of membranes and Pitocin. After protracted active labor phase lasting 10 hours, she was found to be complete. Intrapartum course was complicated by malpresentation. Also developed suspected intrapartum intra-amniotic infection that required antibiotics with ampicillin and gentamicin. Method of Induction: Pitocin Amniotic Membrane Rupture Type: Artificial Rupture of Membrane time: 629 Amniotic Fluid Description: Clear Final YANDY: 03/30/20 Final YANDY Source: US <20 weeks Gestational age: 37 Weeks and 5 Days Date of Procedure: 03/14/20 Pre-Operative Diagnosis: Active labor, category 2 heart rate tracing Post-Operative Diagnosis: Liveborn male infant in OA position Surgery/ Procedure Performed: Vacuum Assisted Vaginal Delivery Type of Anesthesia: Epidural Description of Procedure: The patient was found to be completely dilated. Pushing with contractions for approximately 1 hour, the head was noted to be at the +2 station. The patient was having recurrent deep variable decelerations that were requiring longer to return to baseline as well as minimal variability. Mentation was made to proceed with a vacuum-assisted vaginal delivery. The risks, benefits, indications, and alternatives to a vacuum-assisted delivery were discussed with the patient including cephalohematoma, skin lacerations, and brain bleeds. The patient voiced understanding and agreed to proceed. A hard top Kiwi vacuum was applied to the flexion point. Placement was confirmed. The oxygen was increased to the green zone. The suction on the vacuum number exceeded the green zone. The head was delivered with 2 contractions with 2 pulls with each contraction. No rocking was used. There were no pop offs. The head delivered spontaneously. With maternal pushing, the anterior and posterior shoulders delivered atraumatically. Of note the shoulders were in a transverse orientation requiring rotation in order to deliver the anterior shoulder. The rest of the infant delivered atraumatically. There was no nuchal cord present. Terminal meconium was noted. The cord was clamped and cut and the infant was handed to the delivery nurses for evaluation. As Apgars were 9 and 9, cord gases were not obtained. The placenta delivered spontaneously and appeared intact. The perineum and vagina were evaluated and no lacerations were noted. Presentation: Vertex, ANNA Placental Delivery Description: Spontaneous Placenta Disposition: Sent to Pathology Cord Vessel Description: 3 Vessels Cord Entanglement: None Estimated Blood Loss: 150 cc A gender: Male (1 minute): 9 (5 minute): 9 Episiotomy Description: None Laceration: None Medications given after delivery: IV Pitocin Complications: None Multi Select Codes - Urinary/Genital Urinary/Genital CPT Codes: 36737 Vaginal Delivery [facility]
[2020-03-14] MEDS: Naproxen 250 MG Tablet 500 MG PO (21:15)
[2020-03-14] MEDS: 0.9% Saline Lock 10 ML Syringe IV (21:23)
[2020-03-15 00:05] VITALS: BP 99/48; PULSE 98; RESP 16; TEMP 36.9
[2020-03-15 03:05] VITALS: BP 100/56; PULSE 88; RESP 14; TEMP 36.6
[2020-03-15 05:55] LABS: Hematocrit 28.6 % (37-47); Hemoglobin 8.9 g/dL (12.0-15.0); Mean Corp Hgb Conc 31.1 g/dL (32-36); Mean Corpuscular Hgb 27.7 pg (27.0-32.0); Mean Corpuscular Volume 89.1 fL (81-99); Mean Platelet Vol. 11.3 fl (6.2-12.0); Platelet Count 209 K/mm3 (150-450); RBC Distribution Width CV 13.1 % (11.6-14.6); RBC Distribution Width SD 42.1 fl (35.1-43.9); Red Blood Count 3.21 M/mm3 (4.2-5.4); White Blood Count 20.3 K/mm3 (4.4-11.0)
--- NOTE | 2020-03-15 07:55 | PCM.PN.OB ---
Patient Problems: Active and Suspected Problems (Last Reviewed 03/13/20 @ 10:47 by Angelica aGlvin) Active labor at term (Acute) Subjective: Patient doing well without complaints. Tolerating PO. Ambulating and voiding without difficulty. Breast feeding without difficulty. Denies chest pain, shortness of breath, calf pain/swelling, fevers, chills, lightheadedness. - Physical Exam Vitals/I&O's: Vital Signs Temp Pulse Resp BP Pulse Ox 98 F 88 14 100/56 L 98 03/15/20 03:05 03/15/20 03:05 03/15/20 03:05 03/15/20 03:05 03/14/20 19:40 Oxygen Delivery Method Room Air Weight: 156 lb 12.8 oz Body Mass Index (BMI) 29.6 Intake and Output for Last 24 Hours 03/13/20 03/14/20 03/15/20 23:59 23:59 23:59 Intake Total 4464.81 / 4464.81 Output Total 2750 / 2750 Balance 1714.81 / 1714.81 General: Alert, Oriented x3 Abdomen: Soft, Non Tender, Non-Distended, - - FF below U Laboratory Results 03/15/20 05:40: WBC 20.3 H, RBC 3.21 L, Hgb 8.9 L, Hct 28.6 L, MCV 89.1, MCH 27.7, MCHC 31.1 L, RDW Std Deviation 42.1, RDW Coeff of Mansoor 13.1, Plt Count 209, MPV 11.3 Current Medications Acetaminophen (Tylenol) 1,000 mg PO Q8H PRN PRN PRN Reason: Pain Score 1-3/10 Bisacodyl (Dulcolax) 10 mg RECTAL UD PRN PRN Reason: If no BM Dibucaine (Dibucaine) 1 applic TOPICAL TID PRN PRN; Protocol PRN Reason: Discomfort Hydrocortisone (Hytone) 1 applic TOPICAL TID PRN PRN; Protocol PRN Reason: Discomfort Methylergonovine Maleate (Methergine) 0.2 mg IM X1 PRN PRN Reason: Excess bleeding/uterine atony Naproxen (Naprosyn) 500 mg PO Q8H PRN PRN PRN Reason: Pain Score 1-3/10 Last Admin: 03/14/20 21:15 Dose: 500 mg Documented by: Ondansetron HCl (Zofran) 4 mg IV Q4H PRN PRN PRN Reason: Nausea Oxycodone HCl (Oxyir) 5 - 10 mg PO Q4H PRN PRN PRN Reason: Pain Score 4-10/10 Senna/Docusate Sodium (Senokot-S, Raya-Colace) 1 - 2 tablet PO DAILY PRN PRN PRN Reason: Constipation Simethicone (Mylicon) 80 mg PO PCHS PRN PRN Reason: Indigestion/Stomach pain Sodium Chloride () 5 - 15 ml IV UD PRN PRN Reason: SALINE FLUSH Last Admin: 03/14/20 21:23 Dose: 10 ml Documented by: Medical Necessity - Tobacco Use Smoking Status: Former smoker Assessment/Plan All Active Problems (Last Reviewed 03/13/20 @ 10:47 by Angelica Galvin) Active labor at term (Acute) (Acute) Supervision of normal (Acute) Asymptomatic bacteriuria during (Resolved) Missed (Resolved) No significant past medical history (Resolved) Supervision of normal (Resolved) s/p VAVD PPD # 1. routine post delivery care 2. breast feeding- support given 3. rh positive 4. rubella immune 5. Repeat CBC noon today
[2020-03-15 08:50] VITALS: BP 94/54; PULSE 87; RESP 16; TEMP 36.3
[2020-03-15 12:16] VITALS: BP 95/50; PULSE 94; RESP 16; TEMP 36.6
[2020-03-15 13:30] LABS: Hemoglobin 9.8 g/dL (12.0-15.0); Mean Corp Hgb Conc 31.6 g/dL (32-36); Mean Corpuscular Hgb 28.4 pg (27.0-32.0); Mean Corpuscular Volume 89.9 fL (81-99); Platelet Count 229 K/mm3 (150-450); RBC Distribution Width CV 13.2 % (11.6-14.6); RBC Distribution Width SD 43.1 fl (35.1-43.9); Red Blood Count 3.45 M/mm3 (4.2-5.4); White Blood Count 20.7 K/mm3 (4.4-11.0)
--- NOTE | 2020-03-15 15:14 | NURSING ---
Reviewed student charting and agree. charting used for educational and learning purposes only.
[2020-03-15 16:19] VITALS: BP 106/58; PULSE 104; RESP 18; TEMP 37.4
[2020-03-15 19:30] VITALS: BP 100/55; PULSE 99; RESP 16; TEMP 37; O2SAT 99
[2020-03-16 01:45] VITALS: BP 85/40; PULSE 84; RESP 18; TEMP 36.6; O2SAT 97
[2020-03-16 06:40] VITALS: BP 97/46
--- NOTE | 2020-03-16 07:54 | PCM.PN.OB ---
Patient Problems: Active and Suspected Problems (Last Reviewed 03/13/20 @ 10:47 by Angelica Galvin) Active labor at term (Acute) Subjective: Patient doing well without complaints. Tolerating PO. Bleeding is light. Ambulating and voiding without difficulty. Breast feeding without difficulty. Denies chest pain, shortness of breath, calf pain/swelling, fevers, chills, lightheadedness. Objective: Laboratory Tests 03/15/20 03/15/20 03/14/20 Range/Units 13:20 05:40 04:10 WBC 20.7 H 20.3 H (4.4-11.0) K/mm3 RBC 3.45 L 3.21 L (4.2-5.4) M/mm3 Hgb 9.8 L 8.9 L (12.0-15.0) g/dL Hct 31.0 L 28.6 L (37-47) % MCV 89.9 89.1 (81-99) fL MCH 28.4 27.7 (27.0-32.0) pg MCHC 31.6 L 31.1 L (32-36) g/dL RDW Std Deviation 43.1 42.1 (35.1-43.9) fl RDW Coeff of Mansoor 13.2 13.1 (11.6-14.6) % Plt Count 229 209 (150-450) K/mm3 MPV 11.0 11.3 (6.2-12.0) fl Immature Gran % (Auto) (0.0-0.9) % Neut % (Auto) (47-70) % Lymph % (Auto) (19-41) % Mobile % (Auto) (0-10) % Eos % (Auto) (0-5) % Baso % (Auto) (0-1) % Absolute Neuts (auto) (2.0-7.7) X10^3/uL Absolute Lymphs (auto) (0.83-4.51) X10^3/uL Nucleated RBC % (0-5) % Blood Type A POSITIVE Antibody Screen NEGATIVE 03/14/20 Range/Units 04:10 WBC 12.4 H (4.4-11.0) K/mm3 RBC 3.62 L (4.2-5.4) M/mm3 Hgb 10.2 L (12.0-15.0) g/dL Hct 31.5 L (37-47) % MCV 87.0 (81-99) fL MCH 28.2 (27.0-32.0) pg MCHC 32.4 (32-36) g/dL RDW Std Deviation 40.0 (35.1-43.9) fl RDW Coeff of Mansoor 12.6 (11.6-14.6) % Plt Count 248 (150-450) K/mm3 MPV 11.2 (6.2-12.0) fl Immature Gran % (Auto) 0.600 (0.0-0.9) % Neut % (Auto) 78.0 H (47-70) % Lymph % (Auto) 15.5 L (19-41) % Mobile % (Auto) 5.5 (0-10) % Eos % (Auto) 0.2 (0-5) % Baso % (Auto) 0.2 (0-1) % Absolute Neuts (auto) 9.6 H (2.0-7.7) X10^3/uL Absolute Lymphs (auto) 1.92 (0.83-4.51) X10^3/uL Nucleated RBC % 0 (0-5) % Blood Type Antibody Screen - Physical Exam Vitals/I&O's: Vital Signs Temp Pulse Resp BP Pulse Ox 97.8 F 84 18 97/46 L 97 03/16/20 01:45 03/16/20 01:45 03/16/20 01:45 03/16/20 06:40 03/16/20 01:45 Oxygen Delivery Method Room Air Weight: 156 lb 12.8 oz Body Mass Index (BMI) 29.6 Intake and Output for Last 24 Hours 03/14/20 03/15/20 03/16/20 23:59 23:59 23:59 Intake Total 4464.81 / 4464.81 Output Total 2750 / 2750 Balance 1714.81 / 1714.81 General: Alert, Oriented x3, Cooperative HEENT: Atraumatic, PERRLA, EOMI, Normocephalic Neck: Supple Lungs: Normal air movement Cardiovascular: Regular rate Abdomen: Soft, Non Tender, Non-Distended, - - fundus firm Extremities: No edema, No Calf Tenderness Skin: No rashes, No breakdown Musculoskeletal: No Tenderness to Palpation of Joints or Extremities Neurological: Cranial nerves II-XII grossly intact Psych/Mental Status: Normal Affect, Appropriate Laboratory Results 03/15/20 13:20: WBC 20.7 H, RBC 3.45 L, Hgb 9.8 L, Hct 31.0 L, MCV 89.9, MCH 28.4, MCHC 31.6 L, RDW Std Deviation 43.1, RDW Coeff of Mansoor 13.2, Plt Count 229, MPV 11.0 Current Medications Acetaminophen (Tylenol) 1,000 mg PO Q8H PRN PRN PRN Reason: Pain Score 1-3/10 Bisacodyl (Dulcolax) 10 mg RECTAL UD PRN PRN Reason: If no BM Dibucaine (Dibucaine) 1 applic TOPICAL TID PRN PRN; Protocol PRN Reason: Discomfort Hydrocortisone (Hytone) 1 applic TOPICAL TID PRN PRN; Protocol PRN Reason: Discomfort Methylergonovine Maleate (Methergine) 0.2 mg IM X1 PRN PRN Reason: Excess bleeding/uterine atony Naproxen (Naprosyn) 500 mg PO Q8H PRN PRN PRN Reason: Pain Score 1-3/10 Last Admin: 03/14/20 21:15 Dose: 500 mg Documented by: Ondansetron HCl (Zofran) 4 mg IV Q4H PRN PRN PRN Reason: Nausea Oxycodone HCl (Oxyir) 5 - 10 mg PO Q4H PRN PRN PRN Reason: Pain Score 4-10/10 Senna/Docusate Sodium (Senokot-S, Raya-Colace) 1 - 2 tablet PO DAILY PRN PRN PRN Reason: Constipation Simethicone (Mylicon) 80 mg PO PCHS PRN PRN Reason: Indigestion/Stomach pain Sodium Chloride () 5 - 15 ml IV UD PRN PRN Reason: SALINE FLUSH Last Admin: 03/14/20 21:23 Dose: 10 ml Documented by: Medical Necessity - Tobacco Use Smoking Status: Former smoker Assessment/Plan All Active Problems (Last Reviewed 03/13/20 @ 10:47 by Angelica Galvin) Active labor at term (Acute) (Acute) Supervision of normal (Acute) Asymptomatic bacteriuria during (Resolved) Missed (Resolved) No significant past medical history (Resolved) Supervision of normal (Resolved) s/p PPD #2 1. routine post delivery care 2. breast feeding- support given 3. rh positive 4. rubella immune 5. Intrapartum intraamniotic infection - s/p antibiotics. WBC trending down yesterday. Afebrile.
[2020-03-16 08:00] VITALS: BP 104/63; PULSE 78; RESP 15; TEMP 36.9
--- NOTE | 2020-03-16 12:17 | NURSING ---
1135 pt discharged to home; placed in car seat per parents; pt denies any further or maternal care teaching
[2020-03-17 12:57] LABS: Pathology Specimen OB SEE PATHOLOGY REPORT
== END 2020-03-16 11:35 | disposition home or self-care (01) | DRG 805 ==
PROVIDERS: Obstetrics & Gynecology; Admitting Provider Obstetrics & Gynecology; Referring Provider Obstetrics & Gynecology; Visit Provider Obstetrics & Gynecology
DX: O76 Abnormality in fetal heart rate and rhythm complicating labor and delivery (principal); O41.1230 Chorioamnionitis, third trimester, not applicable or unspecified; Z37.0 Single live birth; O32.2XX0 Maternal care for transverse and oblique lie, not applicable or unspecified; O77.0 Labor and delivery complicated by meconium in amniotic fluid; Z3A.37 37 weeks gestation of pregnancy; Z87.891 Personal history of nicotine dependence; Z87.59 Personal history of other complications of pregnancy, childbirth and the puerperium
CPT/HCPCS: 59025; 59050; 85025; 85027; 86850; 86900; 86901; 88307; 99218; J7120; A4216; G0378

== ENCOUNTER → 2022-04-08 | Outpatient (CLI) | payer BC, SELFPAY ==
[2022-04-15 14:50] LABS: HPV Reflexed? NOT INDICATED
== END | disposition home or self-care (01) ==
LOC: LABSPEC 16:48
PROVIDERS: Referring Provider Nurse Practitioner Women's Health; Visit Provider Nurse Practitioner Women's Health
DX: Z12.4 Encounter for screening for malignant neoplasm of cervix (principal)
CPT/HCPCS: 88175; G0145

== ENCOUNTER 2022-08-23 20:07 | Emergency (ER) | payer BC, SELFPAY ==
[2022-08-23 20:08] VITALS: BP 129/89; PULSE 110; RESP 16; TEMP 36.1; BMI 23.8
--- NOTE | 2022-08-23 21:09 | EX.ED.DYSGE1 ---
HPI History of Present Illness Chief Complaint: General Illness Informant: patient Narrative Narrative: Patient is a 31-year-old female presenting for STD check. Patient has no symptoms. Patient states her significant other was tested at another facility today and empirically treated. He been having burning with urination and unilateral testicular pain with ejaculation. Patient does not want any blood work done even though she states she wants to be tested for everything. She denies any abdominal pain, nausea or vomiting or urinary symptoms. Denies any history of STDs. Last menstrual period was in July and she is not concerned for . No other complaints at this time. [facility] Medical History (Updated 08/24/22 @ 01:[address] 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 ROS ED Constitutional Constitutional ED: Denies chills or fever(s) Eyes Eyes: Denies change in vision Cardiovascular Cardiovascular: Denies chest pain or palpitations Respiratory/Chest Respiratory/Chest: Denies cough Gastrointestinal Gastrointestinal: Denies nausea or vomiting Musculoskeletal Musculoskeletal: Denies arthralgias or myalgias Integumentary Denies rash Neurologic Neurologic: Denies weakness Psychiatric Psychiatric: Denies anxiety EXAM Physical Exam Const Vital Signs: 08/23/22 20:08 08/23/22 20:08 08/23/22 22:04 Temperature 96.9 F L 96.9 F L Temperature Source Temporal Temporal Pulse Rate 110 H 110 H Respiratory Rate 16 16 Respiratory Effort Normal Respiratory Pattern Normal Blood Pressure 129/89 H 129/89 H Blood Pressure Mean 102 102 Positive well nourished and well developed General Appearance ED: well developed and NAD HEENT Reports moist mucous membranes Negative for trauma Eyes PERRL and EOMs intact bilaterally Neck supple Resp normal respiratory effort and clear to auscultation bilaterally Cardio regular rate, regular rhythm and no murmurs GI normal to inspection, nondistended, normoactive bowel sounds and non-tender Extremity normal to inspection General Extremety ED: Negative for edema or tenderness General Extremity: Negative for edema Neuro oriented x3 Sensorium / Orientation: alert Motor Exam: Negative for general weakness Psych mental status grossly normal Skin no rashes or lesions noted and no wounds MDM MDM MDM Narrative Medical decision making narrative: Patient evaluated for STD check. She is asymptomatic at this time. Her partner is symptomatic and was treated earlier today at another facility. He does not have his results. Has a benign physical exam including a benign abdominal exam. No tenderness. Given her lack of discharge or other symptoms I have a low suspicion for pelvic inflammatory disease and do not think a bimanual pelvic exam is indicated. Patient is comfortable self swabbing. Patient's vital signs are significant for mild tachycardia with a heart rate of 110 in triage however she is not tachycardic on my exam. Patient declines testing for HIV and syphilis states she does not want any blood work. I went to reevaluate patient after urinalysis came back. Patient had eloped from the emergency room. 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 Patient was not treated for any STDs. Her gonorrhea and chlamydia did come back negative. Lab Data Labs: Laboratory Results - last 24 hr 08/23/22 08/23/22 21:10 21:10 Urine Color Yellow Urine Clarity Clear Urine pH 7.0 Ur Specific [place] 1.010 Urine Protein 15 H Urine Glucose (UA) Normal Urine Ketones Negative Urine Occult Blood 25 H Urine Nitrite Negative Urine Bilirubin Negative Urine Urobilinogen Normal Ur Leukocyte Esterase Negative Urine RBC 0 SEEN Urine WBC 0 SEEN Ur Squamous Epith Cells 5-10 SEEN Urine Bacteria 0 SEEN Urine Mucus 0 SEEN Urine Test Negative Chlam trachomat DNA PCR Negative N.gonorrhoeae DNA (PCR) Negative Discharge Plan Triage Chief Complaint: General Illness ED Provider: Yesenia Hamlin Dx/Rx/DC Orders Clinical Impression: Concern about STD in female without diagnosis Prescriptions: No Action NK Primary Care Provider: Care Physician,No Primary Referrals: Care Physician,No Primary [Primary Care Provider] - Disposition Disposition: Elopement Discharge Date/Time: 08/23/22 22:05
[2022-08-23 21:28] LABS: Bacteria 0 SEEN /hpf (None Seen); Mucous, Urine 0 SEEN /hpf (<or=2+); Red Blood Cells-Urine 0 SEEN /hpf (0-5); White Blood Cells 0 SEEN /hpf (0-5)
[2022-08-23 21:30] LABS: Color, Urine Yellow (Yellow); Glucose, Dipstick Normal (Normal); Ketone-Dipstick Negative (Negative); Leukocyte Esterase-Dipstick Negative /ul (Negative); Nitrite-Dipstick Negative (Negative); Occult Blood-Urine 25 /ul (Negative); Protein-Dipstick 15 mg/dl (Negative); Urine Bilirubin Dipstick Negative (Negative); Urine Clarity Clear (Clear); Urine Urobilinogen Normal (Normal)
[2022-08-23 21:40] LABS: Internal QC Validated? YES +Cl - CLEAR BKGD; Pregnancy, Urine Negative Negative; Squamous Epithelial Cells - UA 5-10 SEEN /hpf (5-10)
[2022-08-23 23:33] LABS: Chlamydia Trachomatis by PCR Negative (Negative); Neisserai gonorrhoeae by PCR Negative (Negative); Probe Check PASS; Sample Adequacy Control PASS; Specimen Processing Control PASS
== END 2022-08-23 22:05 | disposition left against medical advice (07) ==
PROVIDERS: Emergency Provider Emergency Medicine; Visit Provider Emergency Medicine
DX: Z11.3 Encounter for screening for infections with a predominantly sexual mode of transmission (principal); F17.210 Nicotine dependence, cigarettes, uncomplicated
CPT/HCPCS: 81001; 81025; 87491; 87591; 99282